=== PATIENT | female | born 1995 | race Caucasian/White ===

== ENCOUNTER → 2016-09-17 | Outpatient (REF) | LOC: WSOH 13:24 | DX: Z02.1 Encounter for pre-employment examination (principal) ==

== ENCOUNTER → 2016-09-20 | Outpatient (REF) | LOC: WSOH 08:48 | DX: Z02.89 Encounter for other administrative examinations (principal) ==

== ENCOUNTER → 2016-10-17 | Outpatient (REF) | LOC: WSOH 11:30 | DX: Z02.89 Encounter for other administrative examinations (principal) ==